=== PATIENT | female | born 1960 | race African-American/Black ===

== ENCOUNTER 2017-10-03 07:19 | Emergency (ER) | payer SELFPAY ==
[~2017-10-03] VITALS: Ht 167.6 cm; Wt 150.0 kg
[~2017-10-03 07:19] MED LIST: ALBU2.5I INH; ALBU6.7H INH; AMLO10TA2 PO; FERR324T4 PO; HYDR-2768 PO; IBUP600 PO; LOSA25TA PO; PRED20 PO; VENTAER INH; ZITHTAB PO
[2017-10-03 07:21] VITALS: BP 182/86; PULSE 86; RESP 16; TEMP 98.4; O2SAT 100
--- NOTE | 2017-10-03 07:35 | PD ---
HPI Chief Complaint: Eye Problems/Injury Time Seen by Provider: 07:25 Travel History International Travel<30 days: No Contact w/Intl Traveler<30days: No Traveled to known affect area: No History of Present Illness HPI Patient is a 57-year-old female presenting to the emergency room for evaluation of left eye redness and burning. Patient states her symptoms started yesterday , they got progressively worse overnight. She states she has had clear tearing. She denies any visual changes, nasal congestion, headache, photophobia. She denies any history of the same. Patient does not wear contact lenses. Symptom onset was gradual, symptoms are moderate in nature. There are no alleviating factors. PFSH Past Medical History Hx Anticoagulant Therapy: No Asthma: Yes Depression: Yes Cardiovascular Problems: Yes (HTN) Chemotherapy: No Cerebrovascular Accident: No Diabetes: No Diminished Hearing: No GERD: Yes Hypertension: Yes Respiratory: No : 4 Para: 4 Ovarian Cysts: Yes (POLYCYSTIC OVARY DISEASE) Dilation and Curettage (D&C): Yes Past Surgical History Abdominal Surgery: Yes (LAP hysterectomy) Section: Yes Hysterectomy: Yes Social History Alcohol Use: Yes (RARE) Tobacco Use: No Substance Use: No Allergies-Medications (Allergen,Severity, Reaction): Coded Allergies: No Known Allergies (Verified Adverse Reaction, Unknown, 10/03/17) Reported Meds & Prescriptions Reported Meds & Active Scripts Active Ventolin Hfa 18 GM Inh (Albuterol Sulfate) 90 Mcg/Act Aer 2 Puff INH Q4-6H PRN Resp: Albuterol 2.5 Mg/3 Ml Neb (Albuterol Sulfate) 2.5 Mg/3 Ml Nebu 2.5 Mg INH Q4H PRN Proventil Hfa (Albuterol Sulfate) 6.7 Gm Aero 2 Puff INH Q4H PRN * SHAKE WELL BEFORE USE * Reported Ferrous Sulfate DR (Ferrous Sulfate) 324 Mg Tabdr 324 Mg PO TID Losartan (Losartan Potassium) 25 Mg Tab 25 Mg PO DAILY Amlodipine (Amlodipine Besylate) 10 Mg Tab 10 Mg PO DAILY Review of Systems Except as stated in HPI: all other systems reviewed are Neg Eyes: Positive: Redness, Pain (Burning sensation), Tearing Physical Exam Narrative GENERAL: Well-developed, well-nourished, alert -[place] female. Presenting in no acute distress. SKIN: Warm and dry. HEAD: Normocephalic. EYES: No scleral icterus. Moderate injection to left eye. Fluorescein exam is negative for abrasions, lesions, hyphema. NECK: Supple, trachea midline. No JVD or lymphadenopathy. CARDIOVASCULAR: Regular rate and rhythm without murmurs, gallops, or rubs. RESPIRATORY: Breath sounds equal bilaterally. No accessory muscle use. GASTROINTESTINAL: Abdomen soft, non-tender, nondistended. MUSCULOSKELETAL: No cyanosis, or edema. BACK: Nontender without obvious deformity. No CVA tenderness. Data Data Last Documented VS Vital Signs Date Time Temp Pulse Resp B/P (MAP) Pulse Ox O2 Delivery O2 Flow Rate FiO2 10/03/17 07:21 98.4 86 16 182/86 (118) 100 Orders Orders Erythromycin 0.5% Opth Oint (Ilotycin 0. (10/03/17 07:45) [facility] Medical Decision Making Medical Screen Exam Complete: Yes Emergency Medical Condition: Yes Interpretation(s) Vital Signs Date Time Temp Pulse Resp B/P (MAP) Pulse Ox O2 Delivery O2 Flow Rate FiO2 10/03/17 07:21 98.4 86 16 182/86 (118) 100 Differential Diagnosis Conjunctivitis versus episcleritis versus iritis versus foreign body versus other Narrative Course Patient is a well-appearing 57-year-old female presenting for evaluation of left eye redness and tearing for the last 24 hours. Fluorescein exam is unremarkable. Patient will be given a dose of erythromycin ointment now. Visual acuity assessed, please see nurse's notes. Patient was encouraged to follow-up with her primary doctor or an php software engineer if symptoms did not improve or worsen. Additionally she can return to emergency department. Patient verbalized understanding of discharge instructions. She was educated on how to use the medication. Patient stable for discharge. Diagnosis Primary Impression: Conjunctivitis Qualified Codes: H10.9 - Unspecified conjunctivitis Referrals: Senior Account Director Primary Care Physician Patient Instructions: Conjunctivitis (ED), General Instructions Additional Instructions: Follow-up with your primary doctor Follow-up with an php software engineer Use medications as directed Return to emergency department for any new or worsening symptoms Maintain strict handwashing to avoid transmission Med/Other Pt SpecificInfo: Prescription(s) given Scripts Erythromycin Opth Oint (Erythromycin Opth Oint) 5 Mg/Gm Oint 1 APPLIC LEFT EYE QID for Infection, #1 TUBE 0 Refills Prov: Ama Clifton 10/03/17 Disposition: 01 DISCHARGE HOME Condition: Stable Ama Clifton Oct 03, 2017 07:35
[2017-10-03] MEDS ORDERED: ERYTHROMYCIN 0.5% OPTH OINT 3.5 GM TUBO LEFT EYE ONE (07:45)
[2017-10-03] MEDS ORDERED: ERYTOIN10 LEFT EYE (07:47)
[2017-10-03 08:08] VITALS: BP 134/67
== END 2017-10-03 08:19 | disposition home or self-care (01) ==
LOC: NEPD 07:19
DX: H10.9 Unspecified conjunctivitis (principal); I10 Essential (primary) hypertension; J45.909 Unspecified asthma, uncomplicated
CPT/HCPCS: 99283